=== PATIENT | male | born 1950 | race Caucasian/White ===

== ENCOUNTER 2017-04-04 07:08 | Day surgery (SDC) | payer OTHER, MEDICARE ==
[2017-04-04] MEDS ORDERED: NS 1,000 ML IV ONE (07:09)
--- NOTE | 2017-04-04 07:35 | CPEKG ---
Heart Rate: 70 RR Interval: 857 P-R Interval: 152 QRSD Interval: 96 QT Interval: 412 QTC Interval: 445 P Sterling: 37 QRS Sterling: 52 T Wave Sterling: 38 EKG Severity - NORMAL ECG - EKG Impression: SINUS RHYTHM Electronically Signed By: Rao Galeano 04-Apr-2017 07:53:30
[2017-04-04] MEDS ORDERED: HEPARIN 10,000 UNIT/10 ML MDV (1,000 UNIT/ML) ONE (07:46)
[2017-04-04] MEDS ORDERED: LIDOCAINE 1% 300 MG/30 ML SDV ONE (07:46)
[2017-04-04] MEDS ORDERED: ISOPROTERENOL HCL/D5W 0.2 MG/50 ML BAG IV ONE (07:47)
[2017-04-04] MEDS ORDERED: IOPAMIDOL (ISOVUE-300) 100 ML BTL ONE (07:47)
[2017-04-04 07:56] LABS: PLATELET COUNT 155 10^3/uL (150-400)
[2017-04-04 08:07] LABS: INR 0.96 (0.83-1.16)
[2017-04-04] MEDS ORDERED: MIDAZOLAM 2 MG/2 ML VIAL IVP ONE (08:38)
--- NOTE | 2017-04-04 08:42 | PDANEPAE ---
ANE Past Medical History - Pulmonary History Hx Sleep Apnea: No ANE Review of Systems Review of Systems: - Exercise capacity METS (RN): 5 METS ANE Patient History - Allergies Allergies/Adverse Reactions: No Known Allergies Allergy (Verified 03/30/17 15:57) - Home Medications Home Medications: Ascorbic Acid [Vitamin C 500 mg (*)] 1,000 mg PO DAILY 03/30/17 [Last Taken ] Aspirin EC [Aspirin EC 81 mg (*)] 81 mg PO HS 03/30/17 [Last Taken 04/03/17] Atorvastatin Calcium [Lipitor 10 mg (*)] 5 mg PO HS 03/30/17 [Last Taken ] Cholecalciferol Vit D3 [Vitamin D3 2000 units tab (OTC)] 2,000 units PO DAILY [Last Taken 04/02/17] Fluticasone Nasal [Flonase Nasal [place] (RX)] 1 sprays NASAL HS 03/30/17 [Last Taken 03/30/17] Herbals/Supplements -Info Only 1 ea PO DAILY 03/30/17 [Last Taken 04/02/17] Lisinopril [Zestril 5 mg (*)] 5 mg PO DAILY 03/30/17 [Last Taken 04/02/17] Metoprolol Succinate Xr [Toprol Xl 25 mg (*)] 25 mg PO HS 03/30/17 [Last Taken 03/31/17] Multivitamins [Multivitamin (*)] 1 each PO DAILY 03/30/17 [Last Taken 04/02/17] Donald-3 Fatty Acids [Fish Oil 1000 mg (*)] 1,000 mg PO BID 03/30/17 [Last Taken 04/02/17] - Anes Hx Anes Hx: no prior problems - Smoking Hx Smoking Status: Never smoked ANE Labs/Vital Signs - Labs Result Diagrams: 04/04/17 07:40 04/04/17 07:40 - Vital Signs Height: 175 cm Weight: 73.9 kg ANE Physical Exam - Airway Neck exam: FROM Mallampati Score: Class 2 Mouth exam: normal dental/mouth exam - Pulmonary Pulmonary: no respiratory distress, no rales or rhonchi, clear to auscultation - Cardiovascular Cardiovascular: regular rate and rhythym, no murmur, rub, or gallop ANE Anesthesia Plan Anesthesia Plan: MAC
--- NOTE | 2017-04-04 08:46 | PDGENHP ---
History & Physical Chief Complaint: wct History of Present Illness: exercise induced palps. wct on monitor Relevant Physical Exam: s1s2 rrr cta ao3 Cardiorespiratory Assessment: for cor angio and ep study
[2017-04-04] MEDS ORDERED: fentaNYL 100 MCG/2 ML INJ ONE (08:53)
[2017-04-04] MEDS ORDERED: PROPOFOL/EMULSION 500 MG/50 ML BOTTLE IV ONE (08:53)
[2017-04-04] MEDS ORDERED: BUPIVACAINE 0.5% 10 ML SDV ONE (09:09)
[2017-04-04] MEDS ORDERED: PHENYLEPHRINE HCL 100 MCG/ML SYR ONE ×2 (09:26)
--- NOTE | 2017-04-04 10:41 | POSTANESTH ---
Post Anesthetic Evaluation Cardiovascular Status: Normal, Stable, Similar to Pre-Op Cond, Tx Over/Under Hydration Respiratory Status: Similar to Pre-op Cond. Level of Consciousness/Mental Status: Can Participate in Eval, Alert and Oriented Pain Control: Adequate, Prn Tx Ordered Nausea/Vomiting Control: Adequate, Prn Tx Ordered Complications Possibly Related to Anesthesia: None Noted
--- NOTE | 2017-04-04 10:43 | EPPROC ---
Electrophysiology Procedure Note: DIAGNOSTIC ELECTROPHYSIOLOGIC STUDY Procedures performed: 1. Fluoroscopy 2. EP evaluation with RA/RV/LA pace/record, with arrhythmia induction 3. EP evaluation with RA/RV pace record, insert/reposition catheter, with arrhythmia induction 4. Programmed stimulation + pacing after IV drug INDICATION: Wide complex tachycardia Exercise induced palpitations PROCEDURE: Catheters & Anesthesia: The patient arrived in the Electrophysiology Laboratory in the fasting state. The right clavicular region, right groin, & left groin area were prepped & draped in the usual sterile manner. Dr. Colleen Cade administered anesthesia. Appropriate non-invasive blood pressure, pulse oximetry & end-tidal CO2 monitoring was established. Coronary angiogram was done prior to EP study. This has been dictated separately. All catheters were placed percutaneously using the modified Seldinger technique , and advanced into position under fluoroscopic guidance. One #7 Yoruba deflectable octapolar electrode catheter was advanced to the His-bundle position via the left femoral vein (2mm spacing). One #7 Yoruba deflectable catheter with 10 pairs of electrodes was placed via the left femoral vein into the coronary sinus. Programmed stimulation was performed from the right atrium, right ventricle and coronary sinus (left atrium). Parahisian pacing demonstrated constant H-A interval with changing V-A intervals and stimulus-A intervals during capture and loss of capture of proximal RBB proving retrograde conduction over AV node. There was no antegrade accessory pathway conduction. Heparin 3000 U was administered. No sustained reentrant tachycardia was induced during programmed stimulation at baseline or during graded doses of isoproterenol up to 2 mcg/min. Programmed ventricular stimulation using standard protocol did not induce any ventricular arrhythmia. During burst pacing and during short episodes of atrial tachycardia, there was both left bundle branch block and right bundle-branch block aberrancy. Frequent PVCs were noted during EP study, these were of a left bundle-branch block superior axis morphology. The catheters were removed. Vascular access sheaths were removed in the EP lab after placing subcutaneous pursestring suture. The patient was transferred to the cardiovascular holding area in stable condition. There were no apparent complications. SCL 1090 ms AH 65 ms HV 45 ms Antegrade WBB 340 ms Retrograde WBB 460 ms CONCLUSIONS 1. Normal sinus and AV node function. 2. No evidence of accessory AV pathway presence. 3. No sustained arrhythmias induced. 4. Nonsustained atrial tachycardia with left bundle branch block and right bundle branch block aberrancy 5. No apparent complications. Patient Problems: Problems Problem Status Onset Wide-complex tachycardia Acute
--- NOTE | 2017-04-04 10:44 | PDDXCAT ---
Diagnostic Cath Note - . 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
[2017-04-04] MEDS ORDERED: ATROPINE SULFATE 1 MG/10 ML SYR ONE (10:45)
== END 2017-04-04 17:39 | disposition home or self-care (01) ==
LOC: FCATH 07:08
PROVIDERS: ATTEND Internal Medicine Cardiovascular Disease
PROC: 3E033KZ Introduction of Other Diagnostic Substance into Peripheral Vein, Percutaneous Approach (ICD-10-PCS; principal; 2017-04-04)
PROC: 4A0234Z Measurement of Cardiac Electrical Activity, Percutaneous Approach (ICD-10-PCS; principal; 2017-04-04)
PROC: B2111ZZ Fluoroscopy of Multiple Coronary Arteries using Low Osmolar Contrast (ICD-10-PCS; principal; 2017-04-04)
DX: I47.1 Supraventricular tachycardia (principal); Z82.49 Family history of ischemic heart disease and other diseases of the circulatory system
CPT/HCPCS: C1731; J0461; J1644; J2250; J2370; J2704; J3010; Q9967

== ENCOUNTER → 2017-11-10 | Outpatient (CLI) | payer OTHER, MEDICARE | LOC: BHFA 10:00 | PROVIDERS: ATTEND Internal Medicine Cardiovascular Disease | DX: R00.2 Palpitations (principal) ==